=== PATIENT | male | born 1950 | race Native Hawaiian/Other Pacific Islander ===

== ENCOUNTER 2020-01-15 13:17 | Outpatient (CLI) | payer OTHER ==
[2020-01-15 13:55] LABS: PLATELET COUNT 217 K/uL (142-355)
[2020-01-15 14:35] LABS: POTASSIUM 4.8 mmol/L (3.6-5.2)
== END 2020-01-15 19:43 | disposition home or self-care (01) ==
LOC: LABW 13:17
PROVIDERS: Internal Medicine Hematology & Oncology
DX: Z51.11 Encounter for antineoplastic chemotherapy (principal); C34.31 Malignant neoplasm of lower lobe, right bronchus or lung; Z79.899 Other long term (current) drug therapy
CPT/HCPCS: 36415; 80053; 84436; 84443; 84480; 85027

== ENCOUNTER 2020-01-22 14:06 | Outpatient (CLI) | payer OTHER ==
[2020-01-22 14:29] LABS: PLATELET COUNT 120 K/uL (142-355)
[2020-01-22 14:41] LABS: POTASSIUM 4.6 mmol/L (3.6-5.2)
== END 2020-01-22 20:46 | disposition home or self-care (01) ==
LOC: LABW 14:06
PROVIDERS: Internal Medicine Hematology & Oncology
DX: Z51.11 Encounter for antineoplastic chemotherapy (principal); C34.31 Malignant neoplasm of lower lobe, right bronchus or lung; Z79.899 Other long term (current) drug therapy
CPT/HCPCS: 36415; 80053; 84436; 84443; 84480; 85007; 85027

== ENCOUNTER 2020-01-30 10:11 | Outpatient (CLI) | payer OTHER ==
[2020-01-30 10:30] LABS: PLATELET COUNT 299 K/uL (142-355)
[2020-01-30 11:40] LABS: POTASSIUM 4.6 mmol/L (3.6-5.2)
== END 2020-01-30 19:10 | disposition home or self-care (01) ==
LOC: LABW 10:11
PROVIDERS: Internal Medicine Hematology & Oncology
DX: Z51.11 Encounter for antineoplastic chemotherapy (principal); C34.31 Malignant neoplasm of lower lobe, right bronchus or lung; Z79.899 Other long term (current) drug therapy
CPT/HCPCS: 36415; 80053; 84439; 84443; 84480; 85027

== ENCOUNTER 2020-02-05 14:00 | Outpatient (CLI) | payer OTHER ==
[2020-02-05 14:17] LABS: PLATELET COUNT 380 K/uL (142-355)
[2020-02-05 14:39] LABS: POTASSIUM 5.3 mmol/L (3.6-5.2)
== END 2020-02-05 23:31 | disposition home or self-care (01) ==
LOC: LABW 14:00
PROVIDERS: Internal Medicine Hematology & Oncology
DX: Z51.11 Encounter for antineoplastic chemotherapy (principal); C34.31 Malignant neoplasm of lower lobe, right bronchus or lung; Z79.899 Other long term (current) drug therapy
CPT/HCPCS: 36415; 80053; 84436; 84443; 84480; 85027

== ENCOUNTER 2020-02-12 13:01 | Outpatient (CLI) | payer OTHER ==
[2020-02-12 13:57] LABS: POTASSIUM 4.9 mmol/L (3.6-5.2)
[2020-02-12 14:57] LABS: PLATELET COUNT 249 K/uL (142-355)
== END 2020-02-12 22:07 | disposition home or self-care (01) ==
LOC: LABW 13:01
PROVIDERS: Internal Medicine Hematology & Oncology
DX: Z51.11 Encounter for antineoplastic chemotherapy (principal); C34.31 Malignant neoplasm of lower lobe, right bronchus or lung; Z79.899 Other long term (current) drug therapy
CPT/HCPCS: 36415; 80053; 84436; 84443; 84480; 85007; 85027

== ENCOUNTER 2020-02-19 13:58 | Outpatient (CLI) | payer OTHER ==
[2020-02-19 14:21] LABS: PLATELET COUNT 142 K/uL (142-355)
[2020-02-19 14:38] LABS: POTASSIUM 3.8 mmol/L (3.6-5.2)
== END 2020-02-19 19:32 | disposition home or self-care (01) ==
LOC: LABW 13:58
PROVIDERS: Internal Medicine Hematology & Oncology
DX: Z51.11 Encounter for antineoplastic chemotherapy (principal); C34.31 Malignant neoplasm of lower lobe, right bronchus or lung; Z79.899 Other long term (current) drug therapy
CPT/HCPCS: 36415; 80053; 84436; 84443; 84480; 85027

== ENCOUNTER 2020-02-26 14:11 | Outpatient (CLI) | payer OTHER ==
[2020-02-26 14:57] LABS: PLATELET COUNT 315 K/uL (142-355)
== END 2020-02-26 21:16 | disposition home or self-care (01) ==
LOC: LABW 14:11
PROVIDERS: Internal Medicine Hematology & Oncology
DX: Z51.11 Encounter for antineoplastic chemotherapy (principal); C34.31 Malignant neoplasm of lower lobe, right bronchus or lung; Z79.899 Other long term (current) drug therapy
CPT/HCPCS: 36415; 84439; 84443; 84481; 85027

== ENCOUNTER 2020-03-06 14:42 | Outpatient (CLI) | payer OTHER ==
[2020-03-06 15:17] LABS: PLATELET COUNT 341 K/uL (142-355)
[2020-03-06 15:32] LABS: POTASSIUM 4.3 mmol/L (3.6-5.2)
== END 2020-03-06 21:35 | disposition home or self-care (01) ==
LOC: LABW 14:42
PROVIDERS: Internal Medicine Hematology & Oncology
DX: Z51.11 Encounter for antineoplastic chemotherapy (principal); C34.31 Malignant neoplasm of lower lobe, right bronchus or lung; Z79.899 Other long term (current) drug therapy
CPT/HCPCS: 36415; 80053; 84436; 84443; 84480; 85027

== ENCOUNTER 2020-03-12 14:48 | Outpatient (CLI) | payer OTHER ==
[2020-03-12 15:06] LABS: PLATELET COUNT 223 K/uL (142-355)
[2020-03-12 16:02] LABS: POTASSIUM 4.4 mmol/L (3.6-5.2)
== END 2020-03-12 20:39 | disposition home or self-care (01) ==
LOC: LABW 14:48
PROVIDERS: Internal Medicine Hematology & Oncology
DX: Z51.11 Encounter for antineoplastic chemotherapy (principal); C34.31 Malignant neoplasm of lower lobe, right bronchus or lung; Z79.899 Other long term (current) drug therapy
CPT/HCPCS: 36415; 80053; 84436; 84443; 84480; 85027

== ENCOUNTER 2020-03-19 13:41 | Outpatient (CLI) | payer OTHER ==
[2020-03-19 13:55] LABS: PLATELET COUNT 249 K/uL (142-355)
[2020-03-19 14:21] LABS: POTASSIUM 4.3 mmol/L (3.6-5.2)
== END 2020-03-19 19:22 | disposition home or self-care (01) ==
LOC: LABW 13:41
PROVIDERS: Internal Medicine Hematology & Oncology
DX: Z51.11 Encounter for antineoplastic chemotherapy (principal); C34.31 Malignant neoplasm of lower lobe, right bronchus or lung; Z79.899 Other long term (current) drug therapy
CPT/HCPCS: 36415; 80053; 84436; 84443; 84480; 85027

== ENCOUNTER 2020-03-25 14:43 | Outpatient (CLI) | payer OTHER ==
[2020-03-25 14:59] LABS: PLATELET COUNT 150 K/uL (142-355)
[2020-03-25 15:18] LABS: POTASSIUM 4.3 mmol/L (3.6-5.2)
== END 2020-03-25 23:59 | disposition home or self-care (01) ==
LOC: LABW 14:43
PROVIDERS: Internal Medicine Hematology & Oncology
DX: Z51.11 Encounter for antineoplastic chemotherapy (principal); C34.31 Malignant neoplasm of lower lobe, right bronchus or lung; Z79.899 Other long term (current) drug therapy
CPT/HCPCS: 36415; 80053; 84436; 84443; 84480; 85007; 85027

== ENCOUNTER 2022-09-25 16:59 | Emergency (ER) | payer OTHER ==
[~2022-09-25] VITALS: Ht 182.9 cm; Wt 95.3 kg
[2022-09-25 17:12] VITALS: BP 85/47; TEMP 98
== END 2022-09-25 18:05 | disposition home or self-care (01) ==
LOC: ED 16:59
DX: L89.101 Pressure ulcer of unspecified part of back, stage 1 (principal)
CPT/HCPCS: 99282

== ENCOUNTER 2023-01-28 07:24 | Emergency (ER) | payer OTHER ==
[~2023-01-28] VITALS: Ht 182.9 cm; Wt 68.0 kg
[2023-01-28 07:24] VITALS: TEMP 97.9
[2023-01-28 07:48] LABS: PLATELET COUNT 414 K/uL (142-355)
[2023-01-28 07:53] LABS: POTASSIUM 5.9 mmol/L (3.6-5.2)
[2023-01-28 08:18] VITALS: BP 101/43
== END 2023-01-28 12:54 | disposition home health service (06) ==
LOC: ED 07:24
PROVIDERS: Nurse Practitioner Family
DX: R53.1 Weakness (principal)
CPT/HCPCS: 80053; 84484; 85027; 93005; 96360; 99284

== ENCOUNTER 2023-01-28 13:06 | Inpatient (IN) | payer OTHER ==
[~2023-01-28] VITALS: Ht 182.9 cm; Wt 65.9 kg
[2023-01-28 15:23] VITALS: BP 96/43; TEMP 98.4; Ht 182.9 cm; Wt 65.9 kg
[2023-01-28 19:49] VITALS: BP 85/40; BP 85/400; TEMP 98.8
[2023-01-28 20:00] VITALS: BP 85/40; TEMP 98.8
[2023-01-29 07:49] VITALS: BP 95/55; TEMP 98.3
[2023-01-29 20:00] VITALS: BP 100/60; TEMP 98.2
[2023-01-30 08:00] VITALS: BP 93/55; TEMP 98.5
[2023-02-01 08:02] VITALS: BP 91/59; TEMP 97.5
[2023-02-01 18:45] VITALS: BP 91/59; TEMP 97.5
[2023-02-01 19:45] VITALS: BP 90/54; TEMP 97.8
== END 2023-02-02 11:11 | disposition home health service (06) | DRG 182 ==
LOC: MED/SURG 13:06
PROVIDERS: ADMIT Nurse Practitioner Family; ATTEND Internal Medicine
DX: C78.00 Secondary malignant neoplasm of unspecified lung (principal); R53.1 Weakness